=== PATIENT | female | born 1990 | race Caucasian/White ===

== ENCOUNTER → 2017-07-30 | Outpatient (CLI) | payer OTHER ==
[~2017-07-30] MED LIST: GUAI100L PO
[2017-07-30 11:19] LABS: BASO % 0.1 %; BASO ABS # 0.01 K/uL (0-0.2); COMPLETE YES; EOS % 0.4 %; HEMATOCRIT 39.5 % (37-47); IG% 0.1 %; LYMPH % 30.2 %; LYMPH ABS # 2.07 K/uL (1.2-3.4); MEAN CELL VOLUME 93.2 fL (80-100); MEAN CORPUSCULAR HEMOGLOBIN 32.1 pg (25-34); MEAN CORPUSCULAR HGB CONC 34.4 g/dl (32-36); MONO % 6.3 %; NEUT % 62.9 %; PLATELET COUNT 222 K/uL (130-400); RED BLOOD COUNT 4.24 M/uL (4.2-5.4); WHITE BLOOD COUNT 6.85 K/uL (4.8-10.8)
[2017-07-30 14:07] LABS: URINE APPEARANCE CLEAR (CLEAR); URINE BILIRUBIN NEG (NEG); URINE COLOR YELLOW; URINE NITRITE NEG (NEG); URINE PH 7.5 (4.5-7.5); URINE SPECIFIC GRAVITY 1.005 (1.000-1.030); UROBILINOGEN NEG (NEG)
[2017-07-30 14:13] LABS: MANUAL MICROSCOPIC REQUIRED? NO; REVIEW REQ? NO
[2017-08-02 02:02] LABS: CHLAMYDIA TRACH RNA*** NOT DETECTED (NOT DETECTED); GC (NEIS GONORRHOEAE)RNA** NOT DETECTED (NOT DETECTED)
== END | disposition home or self-care (01) ==
LOC: C.LAB1850 10:26
PROVIDERS: ATTEND Obstetrics & Gynecology
DX: O09.219 Supervision of pregnancy with history of pre-term labor, unspecified trimester (principal)

== ENCOUNTER → 2017-07-30 | Outpatient (CLI) | payer OTHER | END | disposition home or self-care (01) | LOC: C.PAPS 14:16 | PROVIDERS: ATTEND Obstetrics & Gynecology | DX: O09.219 Supervision of pregnancy with history of pre-term labor, unspecified trimester (principal) ==

== ENCOUNTER → 2017-09-24 | Outpatient (CLI) | payer OTHER ==
[2017-09-24 14:08] LABS: GTGD 50 Grams
[2017-09-25 12:12] LABS: AFP CONCENTRATION 32.7 NG/ML; AFP MULTIPLE OF MEDIAN 1.09; AFPTS GESTATIONAL AGE 16.1 WEEKS; AFPTS INSULIN DEP DIABETIC? NO; AFPTS MATERNAL WT 173 LBS; ALPHA-FETOPROTEIN RACE CAUCASIAN=W; EDD DETERMINED BY ULTRASOUND; ESTRIOL MULTIPLE OF MEDIAN 0.56; HISTORY OF NTD NO; INHIBIN A 171 PG/ML; INHIBIN A MOM 1.08; REPEAT SAMPLE? NO; hCG MULTIPLE OF MEDIAN 1.15
== END | disposition home or self-care (01) ==
LOC: C.LAB1850 11:55
PROVIDERS: ATTEND Obstetrics & Gynecology
DX: O09.219 Supervision of pregnancy with history of pre-term labor, unspecified trimester (principal)

== ENCOUNTER → 2017-12-17 | Outpatient (CLI) | payer OTHER ==
[2017-12-17 12:06] LABS: HEMOGLOBIN 10.8 g/dL (12.0-16.0)
== END | disposition home or self-care (01) ==
LOC: C.LAB1850 10:51
PROVIDERS: ATTEND Obstetrics & Gynecology
DX: O09.213 Supervision of pregnancy with history of pre-term labor, third trimester (principal); Z3A.00 Weeks of gestation of pregnancy not specified

== ENCOUNTER → 2018-01-03 | Outpatient (CLI) | payer OTHER | END | disposition home or self-care (01) | LOC: C.LAB1850 08:42 | PROVIDERS: ATTEND Obstetrics & Gynecology | DX: O28.1 Abnormal biochemical finding on antenatal screening of mother (principal); Z3A.00 Weeks of gestation of pregnancy not specified ==

== ENCOUNTER 2018-02-04 17:13 | Outpatient (CLI) | payer OTHER ==
[~2018-02-04] VITALS: Ht 162.6 cm; Wt 82.0 kg
[2018-02-04] MEDS ORDERED: PREN1TAB29 (17:54)
[2018-02-04] MEDS ORDERED: RANI150T3 PO (17:55)
[2018-02-04 18:03] VITALS: Ht 162.6 cm; Wt 82.0 kg
== END 2018-02-04 19:58 | disposition home or self-care (01) ==
LOC: C.LD 17:13 → C.OPB 17:13
PROVIDERS: ATTEND Obstetrics & Gynecology
DX: O62.9 Abnormality of forces of labor, unspecified (principal); Z3A.35 35 weeks gestation of pregnancy

== ENCOUNTER → 2018-02-13 | Outpatient (CLI) | payer OTHER ==
[~2018-02-13] MED LIST changes: -GUAI100L PO; +PREN1TAB29; +RANI150T3 PO
== END | disposition home or self-care (01) ==
LOC: C.LABSPEC 13:21
PROVIDERS: ATTEND Obstetrics & Gynecology
DX: O09.213 Supervision of pregnancy with history of pre-term labor, third trimester (principal)

== ENCOUNTER 2018-02-19 21:04 | Outpatient (CLI) | payer OTHER ==
[~2018-02-19] VITALS: Ht 162.6 cm; Wt 82.3 kg
[2018-02-19] MEDS ORDERED: LACTATED RINGER'S 1000ML 500 ML IV ONE (21:35)
[2018-02-19] MEDS ORDERED: LACTATED RINGER'S 1000ML 1,000 ML IV SCH (21:35)
[2018-02-19 21:58] VITALS: Ht 162.6 cm; Wt 82.3 kg
[2018-02-19 22:20] LABS: BASO % 0.1 %; BASO ABS # 0.01 K/uL (0-0.2); EOS % 0.7 %; EOS ABS # 0.07 K/uL (0-0.5); HEMOGLOBIN 10.5 g/dL (12.0-16.0); IG# 0.02 K/uL (0.00-0.02); LYMPH % 24.8 %; LYMPH ABS # 2.47 K/uL (1.2-3.4); MEAN CELL VOLUME 91.7 fL (80-100); MEAN CORPUSCULAR HEMOGLOBIN 31.1 pg (25-34); MEAN CORPUSCULAR HGB CONC 33.9 g/dl (32-36); MONO % 9.2 %; MONO ABS # 0.91 K/uL (0.11-0.59); NEUT ABS # 6.46 K/uL (1.4-6.5); PLATELET COUNT 219 K/uL (130-400); RED CELL DISTRIBUTION WIDTH CV 13.3 % (11.5-14.5); RED CELL DISTRIBUTION WIDTH SD 44.2 fL (36.4-46.3); WHITE BLOOD COUNT 9.94 K/uL (4.8-10.8)
--- NOTE | 2018-02-21 13:06 | EDITING REQUIRED CODING QUERY ---
DIAGNOSIS NEEDED To promote full compliance with coding requirements relating to patient care, physician participation is requested in all cases of hospital pharmacist uncertainty. Please assist us with the question(s) below: Coding Question: The patient received care in labor and delivery on 02/19/18 as noted within the record. Please document the diagnosis that is being addressed by the medication/treatment. Provider Response: DIAGNOSIS: at 37 weeks Irregular contractions Hx of c/s WEEKS OF GESTATION: 37 weeks Thank you for your assistance, Sushma Monteiro - [employer] Supervisor
[2018-03-05] MEDS ORDERED: MTR600X PO ×2 (08:30)
[2018-03-05] MEDS ORDERED: OXYC-57 PO ×2 (08:30)
== END 2018-02-19 22:53 | disposition home or self-care (01) ==
LOC: C.LD 21:04 → C.OPB 21:04
PROVIDERS: ATTEND Obstetrics & Gynecology
DX: O62.9 Abnormality of forces of labor, unspecified (principal); Z3A.37 37 weeks gestation of pregnancy

== ENCOUNTER 2018-03-04 05:03 | Inpatient (IN) | payer OTHER ==
--- NOTE | 2018-03-01 11:58 | PAT Medication Instructions ---
Service Date Mar 01, 2018. Current Home Medication List Vit W/ Ferrous Fumara (), QAM Ranitidine Hcl (Zantac), 150 MG PO DAILY PRN for Indigestion Medication Instructions For Your Scheduled Surgery - Hold the following medications the morning of surgery: Vit W/ Ferrous Fumara (), QAM Ranitidine Hcl (Zantac), 150 MG PO DAILY PRN for Indigestion If you have any questions please call us at [phone] or [phone] or [phone]
[2018-03-01 13:15] LABS: BASO % 0.1 %; BASO ABS # 0.01 K/uL (0-0.2); EOS % 0.4 %; EOS ABS # 0.04 K/uL (0-0.5); HEMOGLOBIN 11.9 g/dL (12.0-16.0); IG# 0.02 K/uL (0.00-0.02); LYMPH % 22.7 %; LYMPH ABS # 2.05 K/uL (1.2-3.4); MEAN CELL VOLUME 91.6 fL (80-100); MEAN CORPUSCULAR HEMOGLOBIN 31.2 pg (25-34); MEAN PLATELET VOLUME 11.7 fL (7.4-10.4); MONO % 7.5 %; MONO ABS # 0.68 K/uL (0.11-0.59); NEUT % 69.1 %; NEUT ABS # 6.23 K/uL (1.4-6.5); PLATELET COUNT 237 K/uL (130-400); RED CELL DISTRIBUTION WIDTH CV 13.7 % (11.5-14.5); RED CELL DISTRIBUTION WIDTH SD 45.2 fL (36.4-46.3); WHITE BLOOD COUNT 9.03 K/uL (4.8-10.8)
[2018-03-01 13:32] LABS: BLOOD UREA NITROGEN 7 mg/dl (7-18); CALCIUM 8.8 mg/dl (8.5-10.1); CARBON DIOXIDE 23 mmol/L (21-32); CREATININE 0.56 mg/dl (0.60-1.20); GLUCOSE 74 mg/dl (70-99); POTASSIUM 3.9 mmol/L (3.5-5.1); SODIUM 134 mmol/L (136-145)
--- NOTE | 2018-03-01 17:48 | HISTORY & PHYSICAL EXAMINATION ---
DATE OF ADMISSION: 03/04/2018 PRINCIPAL DIAGNOSIS: Intrauterine at 39 weeks. PRINCIPAL PROCEDURE: Repeat low transverse section. HISTORY OF PRESENT ILLNESS: The patient is a 27-year-old 4, para 0-1-2-2 white female, EDC of 03/10/2018 who had a prior twin delivered at 34 weeks in [place] by section. She now presents with a rod for repeat section and bilateral tubal ligation. The has been complicated by history of hepatitis C for who she is followed by in [place]. The patient has been treated in the past for hepatitis C in 2015. has otherwise been complicated by cigarette smoking. Otherwise, there have been no other complications. PAST MEDICAL HISTORY: Significant for exercise-induced asthma but not taking any medications. Hepatitis C. She sees Dr. Marino in [place] and has not been recently treated for the chronic hepatitis C. PAST SURGICAL HISTORY: She has had tubes and adenoids, wisdom teeth removed, 2 terminations, and section which was done in 2010. ALLERGIES: She has no known drug allergies. MEDICATIONS: vitamin. SOCIAL HISTORY: She does smoke cigarettes, but no alcohol. FAMILY HISTORY: Noncontributory. OBSTETRICAL AND GYNECOLOGICAL HISTORY: Periods are regular every 29 days. No history of PID, VD, or herpes. No history of abnormal Pap smears. She had terminations in 2007 and 2014. In 2010, she had a section at 34 weeks for a twin gestation because of nonreassuring heart rate. HISTORY: Blood type is A positive. Antibody screen is negative. Pap smear was within normal limits. Rubella is immune. RPR is nonreactive. Hepatitis B antigen is negative. HIV is negative. Chlamydia and GC are negative. Glucola at 16 weeks was normal. A 28-week Glucola was elevated but 2 hour was normal. Anatomy scan was complete and normal. Hemoglobin at 28 weeks was 10.5, hematocrit 31.0. GBS was negative. PHYSICAL EXAMINATION: VITAL SIGNS: Blood pressure is 110/70. GENERAL: She is a well-nourished, well-developed white female, in no apparent distress. LUNGS: Clear to auscultation. No wheezes or rhonchi were noted. ABDOMEN: Gravid, consistent with a term in size. There is no hepatosplenomegaly or other masses palpable. She has a well-healed low transverse skin incision. The fundal height is measuring 38 cm. PELVIC: Declined today. EXTREMITIES: Without calf tenderness. There is trace edema present. ASSESSMENT: A 27-year-old history of chronic hepatitis C, not currently being treated, with a prior section for twins at 38 weeks, now requesting repeat section and bilateral tubal ligation for undesired fertility and multiparity. She understands the risks of procedure including the risk for future and is willing to proceed. Please see the orders for further directions. MARCIA
[~2018-03-04] VITALS: Ht 162.6 cm; Wt 82.3 kg
[2018-03-04] VITALS (18 sets, daily range): BP systolic 95–105; BP diastolic 56–66; PULSE 69–81; TEMP 36.3–37; O2SAT 96–97; Ht 162.6 cm; Wt 82.3 kg
[2018-03-04] MEDS ORDERED: CITRIC ACID/SODIUM CITRATE 15 ML UDC PO SCH (06:00)
[2018-03-04] MEDS ORDERED: LACTATED RINGER'S 1000ML 1,000 ML IV SCH (06:00)
[2018-03-04] MEDS ORDERED: CEFAZOLIN IV 2,000 MG in SYRINGE 0 ML IV SCH (06:00)
--- NOTE | 2018-03-04 07:32 | History & Physical Bridge Note ---
H&P Re-Evaluation Bridge Note: I have examined the patient, reviewed the History & Physical and in the interval since the performance of the History & Physical I have noted the following changes of clinical significance: No changes noted
[2018-03-04] MEDS ORDERED: OXYTOCIN INJ 10 UNITS/ML VIAL ONE ×2 (07:37→08:55)
[2018-03-04] MEDS ORDERED: MoRPHine SULFATE PF 1 MG/ML 10 ML AMP/VIAL ONE (07:37)
[2018-03-04] MEDS ORDERED: FENTANYL CITRATE INJ 50 MCG/1 ML 2 ML VIAL ONE (07:37)
[2018-03-04] MEDS ORDERED: ONDANSETRON INJ 2 MG/ML 2 ML VIAL ONE (08:35)
[2018-03-04] MEDS ORDERED: PHENYLEPHRINE 100MCG/ML 5ML SYR ONE ×2 (08:43→09:03)
[2018-03-04] MEDS ORDERED: LACTATED RINGER'S 1000ML 500 ML IV PRN (09:08)
[2018-03-04] MEDS ORDERED: SODIUM CHLORIDE 0.9% 1000ML 1,000 ML IV PRN (09:08)
[2018-03-04] MEDS ORDERED: NALOXONE HCL INJ 1 MG in SODIUM CHLORIDE 0.9% 1000ML 1,000 ML IV PRN (09:08)
[2018-03-04] MEDS ORDERED: NALOXONE HCL INJ 0.08 MG in SYRINGE 1.8 ML IV PRN (09:08)
[2018-03-04] MEDS ORDERED: NO NARCOTICS OR SEDATIVES SCH (09:15)
[2018-03-04] MEDS ORDERED: DC INTRASPINAL MORPHINE SCH (09:15)
[2018-03-04] MEDS ORDERED: MoRPHine SULFATE PF 1 MG/ML 10 ML AMP/VIAL EPI PRN (09:15)
[2018-03-04] MEDS ORDERED: DiphenhydrAMINE HCL 50 MG/ML VIAL IV PRN (09:15)
[2018-03-04] MEDS ORDERED: NALOXONE HCL 0.4 MG/1 ML VIAL/CARP IV PRN (09:15)
[2018-03-04] MEDS ORDERED: ONDANSETRON INJ 2 MG/ML 2 ML VIAL IV PRN (09:15)
[2018-03-04] MEDS ORDERED: EpHEDrine SULFATE INJ 50 MG/ML AMP IV PRN (09:15)
[2018-03-04] MEDS ORDERED: NALBUPHINE HCL INJ 10 MG/ML AMP IV PRN (09:15)
[2018-03-04] MEDS ORDERED: SENNA 8.6 MG TAB PO PRN (09:30)
[2018-03-04] MEDS ORDERED: LANOLIN OINT EXT PRN (09:30)
[2018-03-04] MEDS ORDERED: DIPHTHERIA/TETANUS/PERTUSSIS 0.5 ML SYR/VIAL IM. ONE (09:30)
[2018-03-04] MEDS ORDERED: MAGNESIUM HYDROXIDE SUSP 30 ML UDC PO PRN (09:30)
[2018-03-04] MEDS ORDERED: BENZOCAINE 20% AER SPR 82.5 GM CAN EXT PRN (09:30)
[2018-03-04] MEDS ORDERED: SUPERCREAM 0.870 % 15GM JAR EXT PRN (09:30)
[2018-03-04] MEDS ORDERED: HYDROCORTISONE ACETATE 25 MG SUPP PR PRN (09:30)
[2018-03-04] MEDS ORDERED: RANITIDINE HCL 150 MG TAB PO PRN (09:30)
--- NOTE | 2018-03-04 09:35 | [facility] Post Operative Brief Note ---
Immediate Operative Summary Operative Date Mar 04, 2018. Pre-Operative Diagnosis Intrauterine at 39 weeks. Repeat section with bilateral tubal ligation for undesired fertility and multiparity. Post-Operative Diagnosis Repeat low transverse section for live baby girl at 0851 and bilateral tubal ligation Procedure(s) Performed Repeat low transverse section with bilateral tubal ligation for live baby girl at 0[address]. Surgeon Dr Bowman Unemployment Specialist Surgeon(s) Dr Mikhail Bunn Estimated Blood Loss 550 Findings Consistent with Post-Op Diagnosis Fluids (cc crystalloids) 2300 Specimens Placenta Portion of Left and Right Fallopian tubes Cord Blood Drains Low to straight drainage Anesthesia Type Spinal Complication(s) none Disposition Accompanied Pt To Recover: yes Disposition: L&D
--- NOTE | 2018-03-04 09:53 | Discharge Instructions ---
Discharge Instructions Date of Service Mar 04, 2018. Admission Reason for Admission: History Of Section, Desires Sterilization Discharge Discharge Diagnosis / Problem: Discharge Goals Goal(s): Routine recovery after Medications Continue Dispensed Medications: supercream, dermaplast, tucks, lansinoh Activity Recommendations Activity Limitations: per Instructions/Follow-up section . Instructions / Follow-Up Instructions / Follow-Up ACTIVITY RECOMMENDATIONS: * Gradual return to full activity over the next 2-3 weeks. * No lifting - nothing heavier than baby over the next 2-3 weeks. * Do not engage in vigorous exercise, sexual activity or sports until cleared by your physician. * Do not drive or operate any motorized equipment until cleared by your physician. * You may shower/bathe daily. MEDICATIONS: For discomfort or pain, you may use Acetaminophen (Tylenol), Ibuprofen (Advil), or Naproxen (Aleve) following the package directions. For constipation you may use Colace following the package directions. BREAST CARE: If you are not breast feeding: * Wear a supportive bra 24 hours a day for one to two weeks. * Avoid stimulating your breasts and nipples as much as possible during the first few weeks after delivery. * When taking a shower, have the warm water hit your back, not breasts. * When your breasts feel full, apply ice packs. Usually three to four times a day helps ease the discomfort. * Take a mild pain medication (Tylenol / Motrin) when you are uncomfortable. If breast feeding: * Use breast milk to lubricate nipples. Lansinoh cream may be used for sore nipples. You do not need to remove cream prior to breast feeding. If using a different brand of cream, check the label for directions regarding removal of cream prior to nursing. * Wear a supportive bra. * If having problems with breasts or breast feeding, call a employee relations consultant or your health care provider. SPECIAL CARE INSTRUCTIONS: When you are discharged from the hospital, it is important for you to follow the instructions listed below: * During the first week at home, you should be able to care for yourself and your baby. In addition, the usual light household activities are encouraged. * Limit your activities to the way you feel. Do not try to clean the house or move furniture. Be sensible. * If you actively engage in sports and have done so up until the time of your delivery, you may resume these activities as soon as you feel able. This may take up to one month or even longer. Use good judgment. * Continue to take your vitamins for at least six weeks after the of your baby. * Your diet need not be limited unless you were on a special diet before your delivery. Breast-feeding mothers need around 2500 calories per day and at least 64-80 ounces of fluid per day (8 to 10 glasses). * You should eat foods from the four major food groups. Crash diets or fad diets are to be avoided. Eating lean meats, fresh fruits and vegetables, low-fat dairy products, high fiber foods and a regular exercise program, will help you get back to your pre- weight without putting your health at risk. * Constipation is sometimes a problem after delivery. Take a mild laxative as needed. If breast feeding, Milk of Magnesia is acceptable to use. You may use a suppository or Fleets enema. * A daily shower or tub bath is suggested. Wash incision daily with warm soapy water and pat dry. It doesn't need to be covered unless drainage is present. * A bloody vaginal discharge will usually continue until around four weeks . A small amount of bleeding may continue for as long as six weeks. Vaginal discharge changes from the bright red bleeding after delivery to pink then brownish and finally yellowish-pink before becoming white and disappearing. * Bleeding may increase with activity. Your first period may come in 4-8 weeks. If you are breast feeding, your period may be delayed even longer. * Mila Doce (sex) can begin whenever both you and your partner feel comfortable and do not have any form of genital infection. It is recommended that you wait at least six weeks for internal and external healing to occur. If you have questions, please talk to your health care practitioner. A condom should be used to prevent infection and . * Foreplay, gentle intercourse and lubrication is very important the first several times to prevent pain. A water-based lubricant such as K-Y jelly or Astroglide may be used. * If you have RH negative blood and your baby is RH positive, you will receive RHOGAM by injection prior to discharge. The nurse will give you a card to keep with you that has the date and place that you received RHOGAM after delivery. * During your care, you had a Rubella screen done to check for the presence of rubella antibodies in your blood. If your test was negative, you will receive a Rubella vaccine prior to discharge. This vaccine may cause a fever, soreness at the injection site and flu-like symptoms. If these symptoms persist, notify your health care practitioner. is not advised for one month after a Rubella vaccine. * Verbalizes understanding of car seat law as reviewed with patient nursing. * Car Seat hand-out given and reviewed with patient by nursing. * Shaken baby information reviewed with patient by nursing. Call you doctor if: * Heavy bleeding (saturating several pads an hour) or passing clots the size of your fist. * A fever >101 degrees F (38.3 degrees C) on two occasions four hours apart and /or chills. * Unusual pain in the pelvic or vaginal areas. * Call the doctor for any increased redness, drainage or swelling around the incision and any pain unrelieved by prescribed pain medication. * "Baby Blues" lasting longer than two weeks. If you have any questions or concerns, call your health care practitioner at . FOLLOW UP VISIT: * Please call the office at to schedule a 6 week examination. It is important you keep this appointment. It is important for you to make arrangements for either yearly or twice yearly check-ups thereafter. Current Hospital Diet Patient's current hospital diet: Discharge Diet Recommended Diet: Regular Diet Procedures Procedures Performed: Repeat low transverse section with bilateral tubal ligation for live baby girl at 0851. Pending Studies Studies pending at discharge: no Medical Emergencies . Who to Call and When: Medical Emergencies: If at any time you feel your situation is an emergency, please call [phone] immediately. . Non-Emergent Contact Non-Emergency issues call your: Primary Care Provider . . "Provider Documentation" section prepared by Mikhail Bunn. .
[2018-03-04] MEDS ORDERED: ARISTA ABSORBABLE HEMOSTAT 3GM TOP ONE (10:05)
[2018-03-04] MEDS: OXYTOCIN INJ 20 UNITS in LACTATED RINGER'S 1000ML 1,000 ML IV SCH ×2 (10:13→19:00)
--- NOTE | 2018-03-04 10:15 | Anesthesiology Progress Note ---
Anesthesia Post Op Note Date & Time Mar 04, 2018 at 10:15 Notes Mental Status: alert / awake / arousable, participated in evaluation Pt Amnestic to Procedure: Yes Nausea / Vomiting: adequately controlled Pain: adequately controlled Airway Patency, RR, SpO2: stable & adequate BP & HR: stable & adequate Hydration State: stable & adequate Neuraxial Anesthesia: was administered, sensory block is resolving Anesthetic Complications: no major complications apparent
[2018-03-04] MEDS: KETOROLAC TROMETHAMINE 30 MG/ML VIAL IV. PRN ×2 (10:31→18:59)
--- NOTE | 2018-03-04 10:36 | OPERATIVE REPORT ---
DATE OF OPERATION: 03/04/2018 PREOPERATIVE DIAGNOSES: Intrauterine at 39 weeks, undesired fertility and multiparity, prior . POSTOPERATIVE DIAGNOSES: Same plus delivery of a viable female infant, 7 pounds 8 ounces, Apgars 9 and 10. PROCEDURE: Repeat low transverse cervical section, bilateral tubal ligation modified Madiha technique. SURGEON: Anuradha Mauricio MD COMPATIBILITY TEST ENGINEER: Dr. Mikhail Bunn PGY I. BLOOD LOSS: 550 mL. ANESTHESIA: Spinal. HISTORY: The patient is a 27-year-old 4, para 0-1-2-2 white female, EDC of 03/10/2018 who had a prior section because of a twin who delivered at 34 weeks. She is requesting repeat section and would also like bilateral tubal ligation for undesired fertility of multiparity. She understands the risks of procedure and is willing to proceed. GROSS FINDINGS: Uterus is gravid and consistent with a term in size. There was a single uterine adhesion to the abdominal wall, which was taken down prior to moving forward once entering the abdominal cavity. Bilateral tubes and ovaries were grossly normal. PROCEDURE: After the patient received adequate subarachnoid block, she was prepped and draped in usual sterile fashion. A low transverse skin incision was made through her prior scar and carried to the fascia with the same with the scalpel. The fascial incision was then extended with Howard scissors. The edges were grasped with Wilfredo clamps and the underlying rectus muscle were bluntly sharply dissected off of the overlying fascia. The rectus muscles were divided on the midline bluntly and the peritoneum was elevated and entered bluntly. The bladder was taken down off the anterior surface of the uterus with Metzenbaum scissors and placed behind the bladder blade. The lower uterine segment was entered with the scalpel and extended transversely. Membranes were ruptured for clear fluid. The was delivered from the occiput posterior presentation with moderate fundal pressure. A double nuchal cord was reduced at the time of delivery. The rest of the infant delivered easily and there was spontaneous vigorous crying and the infant was moving all 4 limbs. The cord was clamped and cut and the infant was handed off to Dr. Jose, who was in attendance as batch and furnace operator. The placenta was then spontaneously delivered and the uterus exteriorized and covered with clean lap sponge. The uterine cavity was then explored and found to be free of any placental tissue or membranes. The uterus was then closed in 2 layers in a running locking imbricating fashion with 0 Monocryl. The site of the uterine adhesion was bleeding and this was repaired with a [id number] stitch of 0 Monocryl, as well as Tre. In the meantime, pressure was applied to this area and to the uterine incision. The left fallopian tube was identified and followed to its fimbriated end, and was then grasped in the mid portion with a Eminence clamp. A knuckle of tube was developed with a tie of 3-0 plain catgut followed by suture ligature of the same and the knuckle of tube was then removed. The ends of the remaining tubes were cauterized with the Bovie. Hemostasis was noted to be excellent. The right fallopian tube was then identified and followed to its fimbriated end, was grasped in the mid portion with a Eminence clamp. The knuckle of tube was then developed with a tie of 3-0 plain catgut followed by a suture ligature of the same. The knuckle of tube was then removed and the remaining ends of the tube cauterized with the Bovie. The posterior cul-de-sac was then irrigated with normal saline. The incision and the uterine scar site was identified. Exam was more and found to have excellent hemostasis. The uterus was placed gently back inside the abdominal cavity. The tubal sites were then evaluated once more and found to have excellent hemostasis. The rectus muscles were then brought together in midline with individual stitches of 0 Monocryl. The fascia was closed in a running fashion with 0 Vicryl. The adipose layer was then irrigated with normal saline and the skin edges were reapproximated using a subcuticular stitch of 4-0 Vicryl. Urine was clear at the end of the case. Mother and infant tolerated the procedure well. I attest to the content of the Intraoperative Record and any orders documented therein. Any exception s are noted below.
[2018-03-04] MEDS: MEPERIDINE HCL 25 MG/ML CARP IV PRN ×2 (12:26→13:01)
[2018-03-04] MEDS: MoRPHine SULFATE 2 MG/ML CARP IV PRN ×2 (15:52→21:22)
[2018-03-04] MEDS: DOCUSATE SODIUM 100 MG CAP PO SCH (19:41)
[2018-03-05 00:30] VITALS: O2SAT 96
[2018-03-05] MEDS ORDERED: ONDANSETRON INJ 2 MG/ML 2 ML VIAL IV PRN (02:30)
[2018-03-05] MEDS ORDERED: ZOLPIDEM TARTRATE 5 MG TAB PO PRN (02:30)
[2018-03-05] MEDS ORDERED: KETOROLAC TROMETHAMINE 30 MG/ML VIAL IV. PRN (02:30)
[2018-03-05] MEDS ORDERED: DiphenhydrAMINE HCL 50 MG/ML VIAL IV PRN (02:30)
[2018-03-05 03:42] VITALS: BP 97/63; PULSE 80; TEMP 37
[2018-03-05] MEDS: OXYCODONE/ACETAMINOPHEN 5-325 TAB PO PRN ×5 (03:59→20:27)
[2018-03-05] MEDS: IBUPROFEN 600 MG TAB PO PRN ×5 (04:00→20:26)
[2018-03-05 06:39] LABS: BASO % 0.1 %; BASO ABS # 0.01 K/uL (0-0.2); EOS ABS # 0.08 K/uL (0-0.5); HEMATOCRIT 30.5 % (37-47); HEMOGLOBIN 10.3 g/dL (12.0-16.0); IG# 0.01 K/uL (0.00-0.02); LYMPH % 20.3 %; LYMPH ABS # 1.68 K/uL (1.2-3.4); MEAN CELL VOLUME 90.8 fL (80-100); MEAN CORPUSCULAR HEMOGLOBIN 30.7 pg (25-34); MEAN CORPUSCULAR HGB CONC 33.8 g/dl (32-36); MEAN PLATELET VOLUME 11.5 fL (7.4-10.4); MONO ABS # 0.66 K/uL (0.11-0.59); NEUT % 70.5 %; NEUT ABS # 5.83 K/uL (1.4-6.5); PLATELET COUNT 188 K/uL (130-400); RED CELL DISTRIBUTION WIDTH CV 13.7 % (11.5-14.5); RED CELL DISTRIBUTION WIDTH SD 45.2 fL (36.4-46.3); WHITE BLOOD COUNT 8.27 K/uL (4.8-10.8)
--- NOTE | 2018-03-05 06:57 | Progress Note ---
Subjective March 05, 2018. Subjective conversation w/ patient Ambulation: ambulating normally Voiding: no voiding problems (catheter removed early this AM, has not voided as yet) Passing Gas: Yes Diet Tolerance: Regular Diet Lochia: Moderate Feeding Type: Bottle Feeding Pain: 9/10, not relieved by one percocet Review of Systems Constitutional: No fever, No chills Respiratory: No cough, No shortness of breath Cardiac: No chest pain Abdomen: No nausea, No vomiting Objective Vital Signs Date Time Temp Pulse Resp B/P (MAP) Pulse Ox O2 Delivery O2 Flow Rate FiO2 03/05/18 03:42 37.0 80 18 97/63 (74) 03/05/18 00:30 18 96 03/04/18 23:47 18 96 03/04/18 23:45 96 Room Air 03/04/18 23:39 37.0 81 18 105/66 (79) 96 Room Air 03/04/18 22:40 16 97 03/04/18 21:40 18 96 03/04/18 20:40 18 97 03/04/18 19:40 18 97 03/04/18 19:15 36.5 73 16 95/56 (69) 97 Room Air 03/04/18 18:40 16 97 03/04/18 17:40 16 96 03/04/18 16:40 18 97 03/04/18 16:00 36.4 73 16 99/62 (74) 97 Room Air 03/04/18 16:00 97 Room Air 03/04/18 15:40 18 97 03/04/18 14:40 18 97 03/04/18 14:00 96 Room Air 03/04/18 13:52 36.4 69 20 98/62 (74) 96 Room Air 03/04/18 13:40 36.3 75 18 97/61 (73) 97 Room Air 03/04/18 13:40 18 97 03/04/18 13:15 18 96 Physical Exam General Appearance: WELL-APPEARING, WD/WN, NO APPARENT DISTRESS Respiratory/Chest: lungs clear Cardiovascular: regular rate, rhythm Abdomen: soft Fundus: Firm, Tender, Relation to Umbilicus (1 above) Incision Description: Clean, Dry & Intact Extremities: no calf tenderness Laboratory Results Last 24 Hours Test 03/05/18 06:12 White Blood Count 8.27 K/uL Red Blood Count 3.36 M/uL Hemoglobin 10.3 g/dL Hematocrit 30.5 % Mean Corpuscular Volume 90.8 fL Mean Corpuscular Hemoglobin 30.7 pg Mean Corpuscular Hemoglobin Concent 33.8 g/dl Platelet Count 188 K/uL Mean Platelet Volume 11.5 fL Neutrophils (%) (Auto) 70.5 % Lymphocytes (%) (Auto) 20.3 % Monocytes (%) (Auto) 8.0 % Eosinophils (%) (Auto) 1.0 % Basophils (%) (Auto) 0.1 % Neutrophils # (Auto) 5.83 K/uL Lymphocytes # (Auto) 1.68 K/uL Monocytes # (Auto) 0.66 K/uL Eosinophils # (Auto) 0.08 K/uL Basophils # (Auto) 0.01 K/uL RDW Standard Deviation 45.2 fL RDW Coefficient of Variation 13.7 % Immature Granulocyte % (Auto) 0.1 % Immature Granulocyte # (Auto) 0.01 K/uL Medications Current Inpatient Medications Medications (Trade) Dose Ordered Sig/Tonya Route Start Time Stop Time Status Last Admin Dose Admin Morphine Sulfate (MoRPHine SULFATE INJ) 2 mg Q6H PRN IV 03/04/18 09:15 03/18/18 02:30 03/04/18 21:22 2 MG Ketorolac Tromethamine (Toradol Inj) 30 mg Q6H PRN IV. 03/05/18 02:30 03/10/18 02:29 Oxycodone/ Acetaminophen (Percocet 5-325mg Tab) 1 tab Q4H PRN PO 03/05/18 02:30 03/19/18 02:29 03/05/18 03:59 1 TAB Oxycodone/ Acetaminophen (Percocet 5-325mg Tab) 2 tab Q4H PRN PO 03/05/18 02:30 03/19/18 02:29 Ibuprofen (Motrin Tab) 600 mg Q4H PRN PO 03/04/18 09:30 04/03/18 09:29 03/05/18 04:00 600 MG Ondansetron HCl (Zofran Inj) 4 mg Q4H PRN IV 03/05/18 02:30 04/04/18 02:29 Prenat Multivit/ [place]/Iron/Folic Ac ( Vitamin Tab) 1 tab DAILY PO 03/05/18 08:00 04/04/18 07:59 Bisacodyl (Dulcolax Tab) 5 mg HS ONCE PO 03/05/18 22:00 03/05/18 22:01 Bisacodyl (Dulcolax Supp) 10 mg PRN PRN PA 03/06/18 09:30 04/05/18 09:29 Docusate Sodium (coLACE CAP) 100 mg BID PO 03/04/18 20:00 04/03/18 19:59 03/04/18 19:41 100 MG Magnesium Hydroxide (Milk Of Magnesia Susp) 30 ml HS PRN PO 03/04/18 09:30 04/03/18 09:29 Cocaine HCl (Supercream 0.870% Cr) BID PRN EXT 03/04/18 09:30 03/18/18 09:29 Lanolin (Lanolin Oint) PRN PRN EXT 03/04/18 09:30 04/03/18 09:29 Hydrocortisone Acetate (Anusol Hc Supp) 25 mg BID PRN PA 03/04/18 09:30 04/03/18 09:29 Benzocaine (Dermoplast Aero Spr) 1 appln PRN PRN EXT 03/04/18 09:30 04/03/18 09:29 Zolpidem Tartrate (Ambien Tab) 5 mg HSZ PRN PO 03/05/18 02:30 04/04/18 02:29 Diphenhydramine HCl (Benadryl Cap) 25 mg QID PRN PO 03/05/18 02:30 04/04/18 02:29 Diphenhydramine HCl (Benadryl Inj) 25 mg QID PRN IV 03/05/18 02:30 04/04/18 02:29 Senna (Senokot Tab) 17.2 mg HS PRN PO 03/04/18 09:30 04/03/18 09:29 Ranitidine HCl (zANTac TAB) 150 mg DAILY PRN PO 03/04/18 09:30 04/03/18 09:29 Assessment and Plan Post-Op Day#: 1 Continue Routine Care: Resident Physician Supervision Note: I interviewed and examined the patient. Discussed with Dr. Bunn and agree with findings and plan as documented in the note. Any exceptions or clarifications are listed here: [None] Documented By: Anuradha Brown 27F s/p elective with tubal ligation day 1 - A+, Rubella Immune, GBS -ve - Vital Signs reviewed and WNL - Hemoglobin Reviewed. 11.9 -> 10.3 - improve pain control - will try 2 percocet and motrin prn - Encourage Ambulation Mikhail Bunn, PGY1 Resident Tracking Resident Involvement: Resident Care Provided Care Provided: OB Delivery
[2018-03-05 08:00] VITALS: BP 99/61; PULSE 70; TEMP 36.5
[2018-03-05] MEDS ORDERED: PRENATAL VITAMIN TAB PO SCH (08:00)
[2018-03-05] MEDS: DOCUSATE SODIUM 100 MG CAP PO SCH ×2 (08:07→19:59)
[2018-03-05] MEDS: PRENATAL VITAMIN TAB PO SCH (08:07)
[2018-03-05] MEDS ORDERED: MTR600X PO ×2 (08:30)
[2018-03-05] MEDS ORDERED: OXYC-57 PO ×2 (08:30)
[2018-03-05 11:39] VITALS: BP 110/70; PULSE 76; TEMP 36.2
[2018-03-05 16:00] VITALS: O2SAT 98
[2018-03-05] MEDS ORDERED: BISACODYL 5 MG TABEC PO ONE (22:00)
[2018-03-05 23:30] VITALS: BP_SYST 68; PULSE 80; TEMP 36.9
[2018-03-06] MEDS: OXYCODONE/ACETAMINOPHEN 5-325 TAB PO PRN ×3 (01:20→11:03)
[2018-03-06] MEDS: IBUPROFEN 600 MG TAB PO PRN ×3 (01:20→11:03)
[2018-03-06 06:25] LABS: HEMATOCRIT 30.2 % (37-47); HEMOGLOBIN 10.1 g/dL (12.0-16.0)
--- NOTE | 2018-03-06 07:05 | Progress Note ---
Subjective March 06, 2018. Subjective conversation w/ patient Ambulation: ambulating normally Voiding: no voiding problems Passing Gas: Yes Diet Tolerance: Regular Diet Lochia: Small Feeding Type: Breast Feeding Pain: 7/10, improving from yesterday. Review of Systems Constitutional: No fever, No chills Respiratory: No cough, No shortness of breath Cardiac: No chest pain Abdomen: No nausea, No vomiting Objective Vital Signs Date Time Temp Pulse Resp B/P (MAP) Pulse Ox O2 Delivery O2 Flow Rate FiO2 03/05/18 23:30 Room Air 03/05/18 23:30 36.9 80 18 68/ (22) Room Air 03/05/18 16:00 98 Room Air 03/05/18 11:39 36.2 76 16 110/70 (83) Room Air 03/05/18 08:00 Room Air 03/05/18 08:00 36.5 70 18 99/61 (74) Room Air Physical Exam General Appearance: WELL-APPEARING, WD/WN, NO APPARENT DISTRESS Respiratory/Chest: lungs clear, normal breath sounds Cardiovascular: regular rate, rhythm Abdomen: soft Fundus: Firm, Tender, Relation to Umbilicus (1 below) Incision Description: Clean, Dry & Intact Extremities: no calf tenderness Laboratory Results Last 24 Hours Test 03/06/18 06:11 Hemoglobin 10.1 g/dL Hematocrit 30.2 % Assessment and Plan Post-Op Day#: 2 Continue Routine Care: 27F s/p elective with tubal ligation day 2 - A+, Rubella Immune, GBS -ve - Vital Signs reviewed and WNL - Hemoglobin Reviewed - stable at 10.1 - continue pain management with percocet, motrin and heat packs - Encourage Ambulation - if her pain continues to improve, could d/c later tonight Resident Physician Supervision Note: I interviewed and examined the patient. Discussed with Dr. Bunn and agree with findings and plan as documented in the note. Any exceptions or clarifications are listed here: Doing well. Improving pain control. Patient desires to be d/c tonight. Instructions given. Documented By: Mary Carver Resident Tracking Resident Involvement: Resident Care Provided Care Provided: OB Delivery
[2018-03-06 07:20] VITALS: BP 115/85; PULSE 75; TEMP 36.4; O2SAT 99
[2018-03-06] MEDS: PRENATAL VITAMIN TAB PO SCH (07:22)
[2018-03-06] MEDS: DOCUSATE SODIUM 100 MG CAP PO SCH (07:22)
[2018-03-06] MEDS ORDERED: BISACODYL 10 MG SUPP PR PRN (09:30)
[2018-03-06 10:21] VITALS: BP_DIAS 85; PULSE 75; TEMP 36.4
--- NOTE | 2018-03-08 01:58 | DISCHARGE SUMMARY ---
PRINCIPAL DIAGNOSES: Intrauterine at term, prior section, undesired fertility and multiparity. PRINCIPAL PROCEDURE: Repeat low transverse cervical section and bilateral tubal ligation. HISTORY OF PRESENT ILLNESS AND HOSPITAL COURSE: The patient is a 27-year-old 4, para 0-1-2-2 white female who had an EDC of 03/10/2018, presenting for repeat section. She had a section with her first because it was a twin gestation delivered at 34 weeks with nonreassuring heart rate pattern. She is requesting repeat section which was done without complications. The tubal ligation was also done at the time of the section. She had an uncomplicated benign postop course. She was afebrile throughout her hospital stay, was eating regular diet on her 1st postop day, and remained afebrile throughout her hospital stay as well. Hemoglobin on admission was 11.9, hematocrit of 35.0, second postop day hemoglobin 10.1, hematocrit of 30.2. She was sent home in good condition with prescriptions for Percocet 1-2 tablets p.o. q. 4 hours p.r.n. pain, Motrin 600 mg p.o. q. 4 hours p.r.n. pain. She is to call for temperature of 101 degrees or higher, heavy vaginal bleeding, burning with urination, increased redness, drainage or pain in her incision, calf tenderness or any other concerns and she is to be seen in the office in 6 weeks for a postop visit.
== END 2018-03-06 11:10 | disposition home or self-care (01) | DRG 765 ==
LOC: C.LD 05:03 → EDSTATUS 09:00 → C.OBG 13:36
PROVIDERS: ADMIT Obstetrics & Gynecology; ATTEND Obstetrics & Gynecology
PROC: 0U570ZZ Destruction of Bilateral Fallopian Tubes, Open Approach (ICD-10-PCS; principal; 2018-03-04 07:30)
PROC: 10D00Z1 Extraction of Products of Conception, Low, Open Approach (ICD-10-PCS; principal; 2018-03-04 07:30)
DX: O34.211 Maternal care for low transverse scar from previous cesarean delivery (principal); O98.42 Viral hepatitis complicating childbirth; O24.420 Gestational diabetes mellitus in childbirth, diet controlled; O99.334 Smoking (tobacco) complicating childbirth; O69.81X1 Labor and delivery complicated by cord around neck, without compression, fetus 1; F17.210 Nicotine dependence, cigarettes, uncomplicated; Z37.0 Single live birth; Z3A.39 39 weeks gestation of pregnancy